=== PATIENT | female | born 1950 | race Caucasian/White ===

== ENCOUNTER → 2016-09-08 | Outpatient (CLI) | payer BC ==
[~2016-09-08] MED LIST: ATOR-22 PO; CALC-354 PO; CHOL100010 PO
--- NOTE | 2016-09-08 16:47 | MAMMOGRAPHY REPORT ---
BILATERAL DIGITAL SCREENING MAMMOGRAM WITH CAD: 09/08/2016 CLINICAL HISTORY: Routine screening. Patient has no complaints. TECHNIQUE: Bilateral CC and MLO views were obtained. Current study was also evaluated with a Comput er Aided Detection (CAD) system. COMPARISON: Comparison is made to exams dated: 02/25/2016 mammogram, 08/08/2014 mammogram, 3 mammogram, 08/27/2015 mammogram, 08/13/2015 mammogram, and 08/22/2014 mammogram - [facility]. BREAST COMPOSITION: The tissue of both breasts is heterogeneously dense, which may obscure small ma sses. FINDINGS: There are large benign rim calcifications scattered in the breasts, and also scattered rou nd and punctate benign-appearing microcalcifications. No suspicious mass, architectural distortion or cluster of new suspicious microcalcifications is seen. IMPRESSION: ACR BI-RADS CATEGORY 1: NEGATIVE There is no mammographic evidence of malignancy. A 1 year screening mammogram is recommended. The p atient will receive written notification of the results. Approximately 10% of breast cancers are not detected with mammography. A negative mammographic repor t should not delay biopsy if a clinically suggestive mass is present. Robyn Chen M.D. ay/:09/08/2016 15:16:45 Fur Sewer: Marcy LAMAS(Michael)(M), [facility] letter sent: Normal 1/2 BI-RADS Code: ACR BI-RADS Category 1: Negative
== END | disposition home or self-care (01) ==
LOC: C.MAMM 09:01
PROVIDERS: ATTEND Obstetrics & Gynecology
DX: Z12.31 Encounter for screening mammogram for malignant neoplasm of breast (principal)

== ENCOUNTER → 2016-09-29 | Outpatient (CLI) | payer BC ==
[2016-09-29 17:28] LABS: HEMATOCRIT 42.6 % (37-47); MEAN CELL VOLUME 93.2 fL (80-100); MEAN CORPUSCULAR HEMOGLOBIN 30.9 pg (25-34); MEAN CORPUSCULAR HGB CONC 33.1 g/dl (32-36); MEAN PLATELET VOLUME 13.6 fL (7.4-10.4); PLATELET COUNT 166 K/uL (130-400); RED BLOOD COUNT 4.57 M/uL (4.2-5.4); WHITE BLOOD COUNT 8.22 K/uL (4.8-10.8)
[2016-09-29 17:54] LABS: ALT/SGPT 17 U/L (12-78); AST/SGOT 17 U/L (15-37); BLOOD UREA NITROGEN 13 mg/dl (7-18); BUN/CREATININE RATIO 13.7 (10-20); CALCIUM 9.6 mg/dl (8.5-10.1); CARBON DIOXIDE 25 mmol/L (21-32); CHLORIDE 108 mmol/L (98-107); CREATININE 0.94 mg/dl (0.60-1.20); GLUCOSE 82 mg/dl (70-99); POTASSIUM 4.4 mmol/L (3.5-5.1); SODIUM 143 mmol/L (136-145)
[2016-09-29 18:05] LABS: ALB/GLOB RATIO 1.1 (0.9-2); ALKALINE PHOSPHATASE 80 U/L (45-117); CHOLESTEROL 164 mg/dl (0-200); CHOLESTEROL/HDL RATIO 2.3; HDL CHOLESTEROL 70 mg/dl; LDL CHOLESTEROL CALCULATED 77 mg/dl; TRIGLYCERIDES 84 mg/dl (0-150); VERY LOW DENSITY LIPOPROT CALC 17 mg/dl
[2016-09-30 07:23] LABS: ESTIMATED AVERAGE GLUCOSE 108 mg/dl; HA1C FLAG Normal (Normal)
--- NOTE | 2016-10-08 11:00 | CODING QUERY MEDICAL NECESSITY ---
SUPPORTING DIAGNOSIS NEEDED Dr. Boo, A supporting diagnosis is required for the test/procedure performed on this patient in order for us to be reimbursed by the patient's insurance. Please provide a supporting diagnosis for the following test/procedure listed below next to the test name along with your signature. *If there is no additional diagnosis for this patient that would support the following test/procedure please document that below next to the test/procedure. Test(s)/Procedure(s) that require a supporting diagnosis: * 13883 GLYCATED HEMOGLOBIN DIAGNOSIS: DATE OF SERVICE: 09/29/16 Provider Signature: Date: Thank you Guilherme Patterson [facility] Information Management Once completed, please kindly fax back to [phone] For questions please call [phone]
== END | disposition home or self-care (01) ==
LOC: C.LABBFT 12:46
PROVIDERS: ATTEND Internal Medicine
DX: Z00.00 Encounter for general adult medical examination without abnormal findings (principal); E78.5 Hyperlipidemia, unspecified

== ENCOUNTER → 2017-09-09 | Outpatient (CLI) | payer BC ==
--- NOTE | 2017-09-09 15:38 | MAMMOGRAPHY REPORT ---
BILATERAL DIGITAL SCREENING MAMMOGRAM TOMOSYNTHESIS WITH CAD: 09/09/2017 CLINICAL HISTORY: Routine screening. Patient has no complaints. TECHNIQUE: Breast tomosynthesis in addition to standard 2D mammography was performed. Current study was also evaluated with a Computer Aided Detection (CAD) system. COMPARISON: Comparison is made to exams dated: 09/08/2016 mammogram, 02/25/2016 mammogram, 08/13/2015 mammogram, 08/08/2014 mammogram, 08/05/2013 mammogram, and 08/04/2012 mammogram - [facility]. BREAST COMPOSITION: The tissue of both breasts is heterogeneously dense, which may obscure small mas ses. FINDINGS: There is a small cluster of calcifications within the right upper outer quadrant, for which spot magnification views are recommended for further evaluation. The remainder of both breasts are stable compared to prior exams, without suspicious masses, calcific ations, or areas of architectural distortion noted. Other scattered bilateral benign-appearing calci fications are not significantly changed. A 1.2 cm calcified benign oil cyst is again noted within th e right upper outer quadrant. IMPRESSION: ACR BI-RADS CATEGORY 0: INCOMPLETE EVALUATION: NEED ADDITIONAL IMAGING EVALUATION Right upper outer quadrant calcifications, for which additional imaging evaluation is recommended. T he patient will be called to schedule an appointment. Approximately 10% of breast cancers are not detected with mammography. A negative mammographic report should not delay biopsy if a clinically suggestive mass is present. Spring Schwarz M.D. ah/:09/09/2017 10:03:13 Information Technology Manager: Marcy LAMAS(R)(M), [facility] letter sent: Addl Imaging 0 BI-RADS Code: ACR BI-RADS Category 0: Incomplete Evaluation: Need Additional Imaging Evaluation
== END | disposition home or self-care (01) ==
LOC: C.MAMM 09:25
PROVIDERS: ATTEND Obstetrics & Gynecology
DX: Z12.31 Encounter for screening mammogram for malignant neoplasm of breast (principal); R92.1 Mammographic calcification found on diagnostic imaging of breast

== ENCOUNTER → 2017-09-18 | Outpatient (CLI) | payer BC ==
--- NOTE | 2017-09-21 07:41 | MAMMOGRAPHY REPORT ---
UNILATERAL RIGHT DIGITAL DIAGNOSTIC MAMMOGRAM: 09/18/2017 CLINICAL HISTORY: Callback from screening mammogram for right breast calcifications. TECHNIQUE: Spot magnification right cc and ML views were obtained. COMPARISON: Comparison is made to exams dated: 09/09/2017 mammogram, 09/08/2016 mammogram, 02/25/2016 m ammogram, 08/27/2015 mammogram, 08/13/2015 mammogram, and 08/22/2014 mammogram - [facility]. BREAST COMPOSITION: The tissue of the right breast is heterogeneously dense, which may obscure small masses. FINDINGS: There is a new small 7 mm cluster of heterogeneous calcifications in the right upper outer quadrant middle depth. Given that the calcifications are new and given the heterogeneous morphology, they are indeterminate and stereotactic biopsy is recommended for further evaluation. Other benign rim calcifications are seen scattered within the right breast. IMPRESSION: ACR BI-RADS CATEGORY 4: SUSPICIOUS New 7 mm cluster of calcifications within the right upper outer quadrant. The calcifications are ind eterminate and stereotactic biopsy is recommended for further evaluation. A phone call was made to the physician's office to confirm faxed results were received. The patient has been verbally notified of the results. She tentatively scheduled the biopsy before leaving the [facility]. Approximately 10% of breast cancers are not detected with mammography. A negative mammographic report should not delay biopsy if a clinically suggestive mass is present. Spring Schwarz M.D. /:09/18/2017 09:32:43 Screener Perfumer: Annie LAMAS(Michael)(Jama), [facility] letter sent: Abnormal 4/5 BI-RADS Code: ACR BI-RADS Category 4: Suspicious
== END | disposition home or self-care (01) ==
LOC: C.MAMM 08:56
PROVIDERS: ATTEND Obstetrics & Gynecology
DX: R92.0 Mammographic microcalcification found on diagnostic imaging of breast (principal)

== ENCOUNTER → 2017-09-23 | Outpatient (CLI) | payer BC ==
--- NOTE | 2017-09-23 11:26 | Discharge Instructions ---
Discharge Instructions Procedure Procedure Date: Sep 23, 2017. Reason for visit: Right Calcs. Discharge Discharge Date: Sep 23, 2017. Discharge Diagnosis: post right breast stereotactic guided biopsy Instructions Activity Recommendations: Additional Limitations (see below) Return to School/Work: no limitations Recommended Home Diet: No Limitations Provider Instructions: ACTIVITY RECOMMENDATIONS: * No lifting, pushing, pulling or exercising the affected side for three days. RETURN TO SCHOOL/WORK: * You may return to work/school after the procedure, but do not perform any strenuous activities for 24 to 48 hours. MEDICATIONS: * Tylenol (two 325 mg) every four to six hours if needed for mild pain (if not allergic to Tylenol). DIET: * Resume previous diet. SPECIAL CARE INSTRUCTIONS: * Keep biopsy site dry for 24 hours. May shower after 24 hours, but do not soak (bathe) incision. * May remove Tegaderm (plastic patch) tomorrow AFTER showering. * Leave the steri-strips on for one week. Allow the steri-strips to fall off by themselves. If not off after one week, you may remove them. You may place a Bandaid crosswise over the strips, if desired. * Apply ice 10 minutes on and 10 minutes off as needed. * Wear a bra at bedtime to sleep more comfortably for 2-3 days. * Your referring physician should have the results after approximately 5 to 7 business days. * Call for unusual bleeding, fever, drainage, etc or if you have any questions call [phone] during normal business hours or after hours call Dr Chen, . FOLLOW UP VISIT: Follow-up with Referring Physician as scheduled. Allergies Coded Allergies: Rofecoxib (Unverified Allergy, Unknown, RASH, 04/17/16) [facility] Recommendations: Call your doctor if: * Temperature above 101 degrees * Pain not relieved by pain medicine ordered * There is increased drainage or redness from any incision * You have any unanswered questions or concerns. Your Doctors Instructions noted above were prepared by provider Robyn Chen. Patient Signature Section: Patient Instructions Signature Page Madeleine Rae Patient (or Guardian) Signature/Date: I have read and understand the instructions given to me by my caregivers. Caregiver/RN/Doctor Signature/Date: The above-named patient and/or guardian has received patient instructions on this date. + Original Patient Signature Page (only) stays with chart. Please make copy for patient.
--- NOTE | 2017-09-23 14:03 | MAMMOGRAPHY REPORT ---
THIS REPORT HAS BEEN AMENDED. STEREOTACTIC GUIDED BIOPSY RIGHT BREAST: 09/23/2017 CLINICAL HISTORY: Indeterminate 7 mm grouping of microcalcifications in the upper outer middle to pos terior right breast. Patient presented for stereotactic guided biopsy. COMPARISON: Comparison is made to exams dated: 09/18/2017 mammogram, 09/09/2017 mammogram, 09/08/2016 ma mmogram, 02/25/2016 mammogram, 08/27/2015 mammogram, and 08/13/2015 mammogram - [facility]. PATIENT CONSENT: After explaining the risks, benefits and alternatives of the procedure to the patien t, informed consent was obtained both verbally and in writing. Specific risks include: Bleeding, inf ection, puncture of adjacent structure, pain, nontarget biopsy, sampling error, metal allergy and med ication reaction. PROCEDURE DESCRIPTION: A time-out was performed and the right breast was confirmed as the site of bio psy. The patient was placed prone on the stereotactic biopsy table and the breast was placed in later almedial compression. A tomosynthesis methods and procedures analyst view was obtained that demonstrates the clustered microc alcifications. Targeting was performed utilizing computer coordinates and based on the location of t he calcifications, the biopsy arm was switched to inferior approach. The skin was prepped with Betad ine. 1% Lidocaine with and without epinipherine was administered as local anesthesia. A small skin in cision was made. Through the incision, the needle was inserted to the depth determined by the comput er. 6 samples were obtained using a [employer] Eviva 9-gauge vacuum-assisted biopsy device. The specimen r adiograph demonstrated only 1-2 microcalcifications therefore 5 additional core biopsy samples were o btained. The second round of samples demonstrates nearly the entire cluster of microcalcifications t herefore a metallic marker was placed at the biopsy site. There was no immediate complication. Hemos tasis was achieved after several minutes of manual compression. The samples were sent to pathology i n two appropriately labeled containers, "with calcifications" and "without calcifications". All of th e samples were obtained from the same single biopsy site. Postprocedure CC and ML views of the right breast were obtained. There is a new dumbbell-shaped [facility] biopsy marker clip and no significant hematoma in the upper outer middle to posterior right nona ast, at the site of the biopsied clustered microcalcifications in question. IMPRESSION: STEREOTACTIC GUIDED BIOPSY Status post right breast stereotactic guided biopsy of a small 7 mm grouping of microcalcifications i n the upper outer quadrant of the right breast, with biopsy marker placed at the site. The patient will receive notification of the biopsy results from her referring physician. Robyn Chen M.D. ay/:09/23/2017 11:44:07 Attending Technologist: Marcy Denney RT(R)(M), [facility] Machine Sprayer: Lindsey Mcfadden RT(R)(M), [facility] AMENDMENT: 09/24/2017 Robyn Chen M.D. 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 The pathology results are concordant with the imaging appearance. Given the findings of both invasiv e ductal carcinoma and DCIS as well as heterogeneously dense breasts, a breast MRI is recommended to assess extent of disease, prior to definitive treatment.
--- NOTE | 2017-09-23 14:03 | MAMMOGRAPHY REPORT ---
UNILATERAL RIGHT DIGITAL DIAGNOSTIC MAMMOGRAM: 09/23/2017 CLINICAL HISTORY: Status post stereotactic guided biopsy of a 7 mm grouping of microcalcifications in the right upper outer quadrant. Please refer to the report from right breast stereotactic guided biopsy performed at the same time fo r full detail. IMPRESSION: POST PROCEDURE IMAGING FOR MARKER PLACEMENT Please refer to the report from right breast stereotactic guided biopsy performed at the same time fo r full detail. Approximately 10% of breast cancers are not detected with mammography. A negative mammographic report should not delay biopsy if a clinically suggestive mass is present. Robyn Chen M.D. ay/:09/23/2017 11:33:31 Attending Technologist: Marcy Denney RT(R)(M), [facility] Glove Factory Sewer: Lindsey Mcfadden RT(R)(M), [facility] BI-RADS Code: Post Procedure Imaging For Marker Placement
== END | disposition home or self-care (01) ==
LOC: C.MAMM 10:33
PROVIDERS: ATTEND Obstetrics & Gynecology
DX: C50.411 Malignant neoplasm of upper-outer quadrant of right female breast (principal); R92.0 Mammographic microcalcification found on diagnostic imaging of breast

== ENCOUNTER → 2017-10-02 | Outpatient (CLI) | payer BC ==
[2017-10-02 12:48] LABS: BASO % 0.2 %; BASO ABS # 0.02 K/uL (0-0.2); EOS % 1.5 %; EOS ABS # 0.15 K/uL (0-0.5); HEMATOCRIT 42.4 % (37-47); HEMOGLOBIN 13.9 g/dL (12.0-16.0); IG# 0.02 K/uL (0.00-0.02); LYMPH % 16.3 %; LYMPH ABS # 1.62 K/uL (1.2-3.4); MEAN CELL VOLUME 94.2 fL (80-100); MEAN CORPUSCULAR HEMOGLOBIN 30.9 pg (25-34); MEAN CORPUSCULAR HGB CONC 32.8 g/dl (32-36); MEAN PLATELET VOLUME 13.5 fL (7.4-10.4); MONO % 7.5 %; MONO ABS # 0.74 K/uL (0.11-0.59); NEUT % 74.3 %; NEUT ABS # 7.38 K/uL (1.4-6.5); PLATELET COUNT 159 K/uL (130-400); RED CELL DISTRIBUTION WIDTH CV 14.5 % (11.5-14.5); RED CELL DISTRIBUTION WIDTH SD 49.5 fL (36.4-46.3); WHITE BLOOD COUNT 9.93 K/uL (4.8-10.8)
[2017-10-02 13:12] LABS: ALT/SGPT 15 U/L (12-78); AST/SGOT 14 U/L (15-37); BLOOD UREA NITROGEN 15 mg/dl (7-18); CARBON DIOXIDE 26 mmol/L (21-32); CREATININE 0.98 mg/dl (0.60-1.20); GLUCOSE 93 mg/dl (70-99); POTASSIUM 4.2 mmol/L (3.5-5.1); SODIUM 141 mmol/L (136-145)
[2017-10-02 13:22] LABS: CHOLESTEROL 148 mg/dl (0-200); LDL CHOLESTEROL CALCULATED 78 mg/dl
== END | disposition home or self-care (01) ==
LOC: C.LABBFT 10:41
PROVIDERS: ATTEND Internal Medicine
DX: Z01.818 Encounter for other preprocedural examination (principal); C50.911 Malignant neoplasm of unspecified site of right female breast; E78.5 Hyperlipidemia, unspecified

== ENCOUNTER → 2017-10-05 | Outpatient (CLI) | payer BC ==
--- NOTE | 2017-10-06 15:25 | MAMMOGRAPHY REPORT ---
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 COMPARISON: Comparison is made to exams dated: 09/23/2017 stereotactic biopsy, 09/18/2017 mammogram, 08/18 mammogram, 09/08/2016 mammogram, 02/25/2016 mammogram, and 08/27/2015 mammogram - [facility]. TECHNIQUE: Using a 1.5 Carole magnet and dedicated breast coil, multisequence axial images were obtain ed through the breasts. After uneventful IV administration of 6 mL of Gadavist, dynamic multiphase c ontrast-enhanced axial images, and sagittal postcontrast were obtained. Temporal subtraction axial i mages and 3-D MIP images are provided. Everything was then reviewed on a 3-D workstation, [email or web address]. FINDINGS: Right breast: There is minimal background parenchymal enhancement. There is susceptibility artifact from a metallic biopsy marker clip in the upper outer approximate 9:0010:00 middle one third of the right breast, at the site of recent stereotactic guided biopsy. Adjacent to the biopsy marker is a r ound circumscribed 10 mm mass, consistent with the large coarse benign calcification seen mammographi etta. There is clumped and linear non-mass enhancement near the biopsy site from approximately 2 mm inferior to the biopsy marker clip extending 3 cm anteriorly towards the nipple, in the approximate 9:0010:00 right breast (axial page 74/116, sagittal page 97/120), that is concerning for additional DCIS. At its widest point in transverse dimension, it measures 8 mm. This linear and clumped non-ma ss enhancement demonstrates T2 isointensity and persistent kinetics. Re-review of prior right mammog marta including spot magnification views fail to demonstrate any additional microcalcifications in the location of the clumped enhancement, nevertheless targeted second look ultrasound is recommended. I f unyielding, MRI guided biopsy may be needed to assess AP extent of disease. No other suspicious en hancing masses, definite areas of non-mass enhancement or architectural distortion is identified in t he right breast. There is no nipple retraction. The retromammary fat is intact. No suspicious righ t axillary lymphadenopathy. Left breast: There is minimal background parenchymal enhancement. There are 2 prominent foci of enha ncement in the approximate 11:00 middle and anterior one third of the left breast. The focus of enha ncement in the middle one third of the breast demonstrates predominantly persistent kinetics with a s charlie internal focus of plateau kinetics, no significant T2 hyperintensity, and measures 3.6 x 5.3 x 4.5 mm (axial page 71/116, sagittal page 35/120). The second, more anterior focus measures 2.5 x 3.0 x 2.7 mm, also no significant T2 hyperintensity, associated persistent kinetics and identified on ax ial page 71/116 and sagittal paged 31/120. These foci of enhancement are indeterminate and targeted second look ultrasound with possible ultrasound-guided core biopsy is recommended. If second look ul trasound is unyielding, MRI guided biopsy may be needed. No other suspicious enhancing masses, non-m ass enhancement or suspicious kinetics is seen in the left breast. No focal skin thickening or nippl e retraction. The retromammary fat is intact. No suspicious left axillary lymphadenopathy. IMPRESSION: ACR BI-RADS CATEGORY 4: SUSPICIOUS 1. Susceptibility artifact from the biopsy marker clip is seen in the 9:00 to 10:00 middle one third of the right breast, denoting the site of recent biopsy proven IDC and DCIS. Linear clumped non-mas s enhancement, 8 mm in maximum transverse dimension, extends 3 cm anteriorly towards the nipple from inferior aspect of the biopsy marker clip, concerning for additional DCIS. Targeted second look ultra sound with possible ultrasound-guided core biopsy is recommended to assess extent of disease, given t hat no additional calcifications are seen mammographically for targeting purposes. 2. Two prominent foci of enhancement are identified in the left breast at approximately 1:00 middle and anterior one third of the breast for which targeted second look ultrasound is recommended. If se cond look ultrasound is unyielding, MRI guided biopsy may be needed. 3. No suspicious axillary adenopathy bilaterally. The patient will be called to schedule an appointment. Robyn Chen M.D. ay/:10/05/2017 21:07:36 Hole Filler: surface room shop optician, [facility] letter sent: Abnormal 4/5 BI-RADS Code: ACR BI-RADS Category 4: Suspicious
== END | disposition home or self-care (01) ==
LOC: C.MRI 09:59
PROVIDERS: ATTEND Surgery
DX: C50.911 Malignant neoplasm of unspecified site of right female breast (principal)

== ENCOUNTER → 2017-10-14 | Outpatient (CLI) | payer BC ==
--- NOTE | 2017-10-14 12:13 | Discharge Instructions ---
Discharge Instructions Procedure Procedure Date: Oct 14, 2017. Reason for visit: Left Foci Of Enhancement. Discharge Discharge Date: Oct 14, 2017. Discharge Diagnosis: post left breast ultrasound guided core biopsy Instructions Activity Recommendations: Additional Limitations (see below) Return to School/Work: no limitations Recommended Home Diet: No Limitations Provider Instructions: ACTIVITY RECOMMENDATIONS: * No lifting, pushing, pulling or exercising the affected side for three days. RETURN TO SCHOOL/WORK: * You may return to work/school after the procedure, but do not perform any strenuous activities for 24 to 48 hours. MEDICATIONS: * Tylenol (two 325 mg) every four to six hours if needed for mild pain (if not allergic to Tylenol). DIET: * Resume previous diet. SPECIAL CARE INSTRUCTIONS: * Keep biopsy site dry for 24 hours. May shower after 24 hours, but do not soak (bathe) incision. * May remove Tegaderm (plastic patch) tomorrow AFTER showering. * Leave the steri-strips on for one week. Allow the steri-strips to fall off by themselves. If not off after one week, you may remove them. You may place a Bandaid crosswise over the strips, if desired. * Apply ice 10 minutes on and 10 minutes off as needed. * Wear a bra at bedtime to sleep more comfortably for 2-3 days. * Your referring physician should have the results after approximately 5 to 7 business days. * Call for unusual bleeding, fever, drainage, etc or if you have any questions call [phone] during normal business hours or after hours call Dr Chen, . FOLLOW UP VISIT: Follow-up with Referring Physician as scheduled. Allergies Coded Allergies: Rofecoxib (Unverified Allergy, Unknown, RASH, 04/17/16) [facility] Recommendations: Call your doctor if: * Temperature above 101 degrees * Pain not relieved by pain medicine ordered * There is increased drainage or redness from any incision * You have any unanswered questions or concerns. Your Doctors Instructions noted above were prepared by provider Robyn Chen. Patient Signature Section: Patient Instructions Signature Page Madeleine Rae Patient (or Guardian) Signature/Date: I have read and understand the instructions given to me by my caregivers. Caregiver/RN/Doctor Signature/Date: The above-named patient and/or guardian has received patient instructions on this date. + Original Patient Signature Page (only) stays with chart. Please make copy for patient.
--- NOTE | 2017-10-14 15:53 | MAMMOGRAPHY REPORT ---
ULTRASOUND GUIDED BIOPSY LEFT BREAST: 10/14/2017 CLINICAL HISTORY: Small round circumscribed hypoechoic 3 mm mass in the 2:00 periareolar left breast, which may possibly correlate with a small enhancing focus seen on recent breast MRI. Patient presen ts for ultrasound guided core biopsy. COMPARISON: Comparison is made to exams dated: 10/14/2017 ultrasound, 09/09/2017 mammogram, 09/08/2016 mammogram, and 08/13/2015 mammogram - [facility]. PATIENT CONSENT: The procedure, risks and benefits were discussed with the patient and informed conse nt was obtained both verbally and in writing. Specific risks to this procedure include: bleeding, in fection, puncture of adjacent structure, nontarget biopsy, sampling error, pain, metal allergy and me dication reaction. PROCEDURE DESCRIPTION: A time out was performed and the left breast was agreed as the site of biopsy. The skin was prepped and draped in the usual sterile fashion. The small round isoechoic 3 mm mass in the 2:00 periareolar left breast was chosen as the target for biopsy. Subcutaneous and intraparenchy mal 1% buffered lidocaine, with and without epinephrine, was administered as local anesthesia. A skin incision was made. Through the incision, 2 samples were taken with a 14 gauge Achieve biopsy device , and after the second biopsy pass the lesion was no longer identified therefore a rubbon shaped meta llic marker was placed at the biopsy site. Hemostasis was achieved after manual compression. The lori ent tolerated the procedure well and there was no immediate complication. The samples were sent to t pathology department in an appropriately labeled container. Post procedure left CC and ML tomosynthesis images were obtained. A new ribbon-shaped biopsy marker clip is identified in the 2:00 anterior left breast, at the site of the biopsied round hypoechoic mas s identified on ultrasound. No significant postbiopsy hematoma. IMPRESSION: ULTRASOUND GUIDED BIOPSY Status post ultrasound guided core biopsy of a small 3 mm round mass in the 2:00 periareolar left nona ast which may possibly correlate with an enhancing focus seen on recent breast MRI. The non-mass enhancement in the lateral right breast and 5 mm linear enhancement in the superior midd le one third of the left breast were not identified on second look ultrasound and therefore bilateral breast MRI guided biopsy is needed. At the time of MRI guided biopsy, can assess mammographicsonog raphic correlation of this biopsy performed today. If there is no mammographicsonographic correlati on then 3 MRI biopsies will be performed. The patient will receive notification of the biopsy results from her referring physician. Robyn Chen M.D. ay/:10/14/2017 12:38:56 Machine Stamper: Marcy ORTIZ)(Jama), [facility]
--- NOTE | 2017-10-14 15:57 | MAMMOGRAPHY REPORT ---
UNILATERAL LEFT DIGITAL DIAGNOSTIC MAMMOGRAM TOMOSYNTHESIS: 10/14/2017 CLINICAL HISTORY: Status post ultrasound guided core biopsy of a small round 3 mm mass in the 2:00 pe riareolar left breast which may correlate with an enhancing focus seen on recent MRI. Recently diagn osed right breast cancer. Please refer to report from left breast ultrasound guided core biopsy performed at the same time for full detail. IMPRESSION: POST PROCEDURE IMAGING FOR MARKER PLACEMENT Please refer to report from left breast ultrasound guided core biopsy performed at the same time for full detail. Approximately 10% of breast cancers are not detected with mammography. A negative mammographic report should not delay biopsy if a clinically suggestive mass is present. Robyn Chen M.D. ay/:10/14/2017 12:12:08 Ordained Minister: Marcy ORTIZ)(M), [facility] BI-RADS Code: Post Procedure Imaging For Marker Placement
--- NOTE | 2017-10-14 15:57 | MAMMOGRAPHY REPORT ---
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 COMPARISON: Comparison is made to exams dated: 10/05/2017 breast MRI, 09/23/2017 stereotactic biopsy, mammogram, 09/18/2017 mammogram, 09/09/2017 mammogram, and 09/08/2016 mammogram - [facility]. FINDINGS: Targeted ultrasound was performed in both breasts, with particular attention to the lateral right breast and retroareolar right breast, as well as the 12:00, 1:00, 2:00, retroareolar and 11:00 axes of the left breast. In the 2:00 periareolar left breast, there is a small round hypoechoic froylan id versus cystic mass with internal punctate reflectors which could represent calcifications. This i s abutting a tubular anechoic structure but it is unclear if it represents an intraductal mass. It i s also not clear if this definitively correlates with the anterior enhancing focus seen on recent MRI , although the size measurements are somewhat similar. On ultrasound this lesion measures 3.2 x 3.0 x 3.6 mm and the MRI lesion measured 2.5 x 3.0 x 2.7 mm. Nevertheless, ultrasound-guided core biopsy is recommended for definitive characterization. No other discrete solid or cystic mass is identifie d in the left breast on targeted ultrasound. No definite sonographic correlate for the linear area o f enhancement in the middle one third of the left breast. Targeted ultrasound was performed in the right breast. In the 10:00 axis, 5 cm from the nipple, ther e is a small biopsy cavity and echogenic biopsy marker clip identified and this area measures 6.8 x 5 .9 mm. This is adjacent to a large shadowing coarse calcification limiting evaluation of the breast tissue deep to the calcification. No other definite solid or cystic mass or targeted bone abnormalit y is seen in the 9:00 and 10:00 right breast to correspond with the linear clumped non-mass enhanceme nt seen on MRI. This finding remains indeterminate and MRI guided biopsy is recommended. IMPRESSION: ACR BI-RADS CATEGORY 4: SUSPICIOUS - FOLLOW-UP RECOMMENDED 1. Ultrasound guided core biopsy is recommend for an indeterminate 3 mm round mass in the 2:00 peria reolar left breast, which may possibly correlate with the smaller anterior 3 mm focus of enhancement in the 12:00 to 1:00 left breast seen on MRI. 2. No sonographic correlate identified for the slightly larger 5 mm linear area of enhancement in th e middle one third of the left breast or the clumped non-mass enhancement extending anterior from the biopsy site in the 9:00 to 10:00 right breast. Therefore MRI guided biopsy is still needed in both breasts. Can assess MRIultrasound correlation at the time of MRI guided biopsy and potentially targ eted 3 lesions during MRI guided biopsy. These results and recommendations were discussed with the patient at the time of the exam. The ultra sound guided core biopsy of the left breast was performed during the same appointment and the patient was scheduled for bilateral MRI guided biopsy prior to leaving the department. Robyn Chen M.D. ay/:10/14/2017 12:19:50 Intermediate Frame Tender: Dr. Robyn Chen, [facility] letter sent: Abnormal 4/5 BI-RADS Code: ACR BI-RADS Category 4: Suspicious
== END | disposition home or self-care (01) ==
LOC: C.MAMM 10:46
PROVIDERS: ATTEND Surgery
DX: N60.02 Solitary cyst of left breast (principal); N61.0 Mastitis without abscess

== ENCOUNTER → 2017-10-22 | Outpatient (CLI) | payer BC ==
[~2017-10-22] MED LIST changes: +GADAVIST IV PRN; +LIDO/EPINEPHRINE/SOD BICARB 20 ML VIAL INFIL ONE; +XYLOCAINE 1%/SOD BICARB 20 ML VIAL INFIL ONE
--- NOTE | 2017-10-22 10:02 | Discharge Instructions ---
Discharge Instructions Procedure Procedure Date: Oct 22, 2017. Reason for visit: Right Non-Enhancement/Left Foci Non-Enhancement. Discharge Discharge Date: Oct 22, 2017. Discharge Diagnosis: post right and left breast MRI guided biopsies Instructions Activity Recommendations: Additional Limitations (see below) Return to School/Work: no limitations Recommended Home Diet: No Limitations Provider Instructions: ACTIVITY RECOMMENDATIONS: * No lifting, pushing, pulling or exercising the affected side for three days. RETURN TO SCHOOL/WORK: * You may return to work/school after the procedure, but do not perform any strenuous activities for 24 to 48 hours. MEDICATIONS: * Tylenol (two 325 mg) every four to six hours if needed for mild pain (if not allergic to Tylenol). DIET: * Resume previous diet. SPECIAL CARE INSTRUCTIONS: * Keep biopsy site dry for 24 hours. May shower after 24 hours, but do not soak (bathe) incision. * May remove Tegaderm (plastic patch) tomorrow AFTER showering. * Leave the steri-strips on for one week. Allow the steri-strips to fall off by themselves. If not off after one week, you may remove them. You may place a Bandaid crosswise over the strips, if desired. * Apply ice 10 minutes on and 10 minutes off as needed. * Wear a bra at bedtime to sleep more comfortably for 2-3 days. * Your referring physician should have the results after approximately 5 to 7 business days. * Call for unusual bleeding, fever, drainage, etc or if you have any questions call [phone] during normal business hours or after hours call Dr Chen, . FOLLOW UP VISIT: Follow-up with Referring Physician as scheduled. Allergies Coded Allergies: Rofecoxib (Unverified Allergy, Unknown, RASH, 04/17/16) Divine Espinal Recommendations: Call your doctor if: * Temperature above 101 degrees * Pain not relieved by pain medicine ordered * There is increased drainage or redness from any incision * You have any unanswered questions or concerns. Your Doctors Instructions noted above were prepared by provider Robyn Chen. Patient Signature Section: Patient Instructions Signature Page Madeleinedoris Rae Patient (or Guardian) Signature/Date: I have read and understand the instructions given to me by my caregivers. Caregiver/RN/Doctor Signature/Date: The above-named patient and/or guardian has received patient instructions on this date. + Original Patient Signature Page (only) stays with chart. Please make copy for patient.
--- NOTE | 2017-10-22 15:07 | MAMMOGRAPHY REPORT ---
MULTIPLE MRI BIOPSIES BOTH BREASTS: 10/22/2017 CLINICAL HISTORY: 67-year-old woman with recently diagnosed right breast IDC presents for MRI guided biopsy of non-mass enhancement in the 9:00 right breast and 2 foci of enhancement in the 11:00 to 12: 00 anterior and middle one third of the left breast. COMPARISON: Comparison is made to exams dated: 10/14/2017 mammogram, 10/14/2017 ultrasound biopsy, 09/18 ultrasound, 10/05/2017 breast MRI, 09/23/2017 mammogram, and 09/23/2017 stereotactic biopsy - [facility]. PATIENT CONSENT: After explaining the risks, benefits and alternatives of the procedure to the patien t, informed consent was obtained both verbally and in writing. Specific risks include: Bleeding, inf ection, puncture of adjacent structure, medication reaction, breast or lung injury, sampling error. PROCEDURE DESCRIPTION: A timeout was performed prior to starting the procedure and both breasts were agreed as sites for MRI guided biopsy. The patient was placed prone on a 1.5 Carole MRI scanner. The lateral aspect of each breast was clean sed with ChloraPrep. The patient was positioned with both breasts in a dedicated breast coil and MRI guidance grid device. After localizing sequences were obtained, pre-and postcontrast axial sequences were obtained, using 6 cc Gadavist without immediate reaction. The postcontrast images confirm the persistence of the non-m ass enhancement in a linear distribution in the 9:00 right breast, and the most anterior aspect of th e non-mass enhancement was targeted with AEGIS software. In the left breast, 2 enhancing foci are ag ain identified in the 11:00 to 12:00 anterior and middle one third of the breast confirming that the ultrasound guided biopsy did not correlate with 1 of these foci. Therefore, the 2 lesions in the lef t breast were also targeted in the left breast using Aegis software. The skin of both the right and left breast was re-prepped with Betadine through the grid, and after l ocal anesthesia was achieved, an introducer sheath and localizing band log mill and carriage operator were placed into the right breast via a lateral approach, targeting the linear non-mass enhancement. 2 additional localizing o bturators were placed into the left breast approximate 11:00 to 12:00 axis in the anterior and middle one third of the breast. These 2 sites were labeled "Left breast A and B". The location of all 3 o bturator sheaths was confirmed with additional axial images. After confirming adequate placement of the obturator sheaths, samples were first obtained in the right breast. A total of 10 core biopsy sa mples were obtained in the 9:00 right breast. Then additional axial images were obtained with fine a djustments of the site labeled "B" in the left breast. Then 8 samples were obtained from both sites A and B in the left breast. Post biopsy images demonstrate adequate sampling of each lesion, therefore, through the introducer sh eath, metallic biopsy markers were placed. In particular, a "T" or "Kvf-Fko-umkuvy" biopsy marker cl ip was placed in the 9:00 anterior right breast. In the left breast at the biopsy site "Left A", in the anterior 11 to 12:00 breast, a dumbbell-shaped biopsy marker clip was placed. In the 11:00 to 12 :00 middle one third of the left breast at the site labeled "Left B", a "figure of 8-shaped" clip was placed. The patient tolerated the procedure well and there was no immediate complication. Hemostasis was ach ieved after several minutes of manual compression. The samples were sent to pathology in appropriate ly labeled containers. Postprocedure CC and ML tomosynthesis views of each breast were obtained. There is a new T-shaped bi opsy marker clip at the 9:00 anterior right breast. No significant hematoma identified. The biopsy marker clips in the right breast are located 3.5 cm distal to each other. The posterior dumbbell-sha ped clip represents the patient's biopsy-proven carcinoma. In the left breast, there is a 4 x 2 cm hematoma at the anterior biopsy site denoted by the dumbbell- shaped biopsy marker clip (left breast "A"). A ribbon-shaped clip is seen at the site of benign ultr asound-guided core biopsy, and a third figure of 8-shaped clip in the posterior 12:00 left breast is also seen, representing site "B" or the focus of enhancement more distal to the nipple. Pathology is pending. Given the left breast hematoma, the patient's left breast was wrapped in a pressure dressing to apply additional pressure with ice as she left the department. IMPRESSION: MRI BIOPSY Status post bilateral breast MRI guided biopsy, with 2 sites sampled with MRI guidance in the left br east, and 1 site sampled in the right breast, detailed above. The patient will receive notification of the biopsy results from her referring physician. Robyn Chen M.D. ay/:10/22/2017 11:07:51 Dressing Machine Operator: rn discharge, [facility]
== END | disposition home or self-care (01) ==
LOC: C.MRI 07:39
PROVIDERS: ATTEND Surgery
DX: R92.8 Other abnormal and inconclusive findings on diagnostic imaging of breast (principal)

== ENCOUNTER → 2017-10-27 | Outpatient (CLI) | payer BC ==
[~2017-10-27] MED LIST changes: +CHOL100041 PO; -GADAVIST IV PRN; -LIDO/EPINEPHRINE/SOD BICARB 20 ML VIAL INFIL ONE; +NAPR1TAB9 PO; -XYLOCAINE 1%/SOD BICARB 20 ML VIAL INFIL ONE
--- NOTE | 2017-10-27 16:11 | ECHOCARDIOGRAM REPORT ---
*NOTICE TO RECEIVING CONSTITUTION PARTY AGENCY This information is strictly Confidential and protected under [place] law. [place] law prohibits you from making any further disclosure of this information unless further disclosure is expressly permitted by the written consent of the person to whom it pertains or is authorized by law. A general authorization for the release of medical or other information is not sufficient for this purpose. Hospital accepts no responsibility if the information is made available to any other person, INCLUDING THE PATIENT. Interpretation Summary * Name: LUCIAN MCNEAL Study Date: 10/27/2017 12:53 PM BP: 126/58 mmHg * Patient Location: [facility] HR: 79 * : 1950 (M/d/yyyy) Gender: Female Height: 59 in * Age: 67 yrs Ethnicity: CA Weight: 133 lb * Ordering Physician: Osmany Cruz * Referring Physician: Osmany Cruz * Performed By: Patricia Braxton RDCS * * Reason For Study: Neoplasm * BSA: 1.6 m2 * -- Conclusions -- * There is borderline concentric left ventricular hypertrophy. * Left ventricular systolic function is normal. * Mild diastolic dysfunction * Right ventricular systolic pressure is normal. Procedure Details * A complete two-dimensional transthoracic echocardiogram was performed (2D, M-mode, Doppler and color flow Doppler). Left Ventricle * The left ventricle is normal in size. * There is borderline concentric left ventricular hypertrophy. * Ejection Fraction = 60-65%. * Left ventricular systolic function is normal. * Mild diastolic dysfunction * The left ventricular wall motion is normal. Right Ventricle * The right ventricle is normal in size and function. * The right ventricular systolic function is normal as assessed by tricuspid annular plane systolic excursion (TAPSE) (normal >1.5 cm). Atria * The left atrial size is normal. * Right atrial size is normal. Mitral Valve * The mitral valve is grossly normal. * There is trace mitral regurgitation. Tricuspid Valve * The tricuspid valve is not well visualized, but is grossly normal. * There is trace tricuspid regurgitation. * Right ventricular systolic pressure is normal. Aortic Valve * The aortic valve is normal in structure and function. * No hemodynamically significant valvular aortic stenosis. * There is no significant aortic regurgitation. Great Vessels * The aortic root is normal size. Pericardium/Pleural * There is no pericardial effusion. Great Vessels * Normal inferior vena cava diameter and respiratory variation suggests normal central venous pressure. MMode 2D Measurements and Calculations IVSd 1.2 cm IVSs 1.2 cm LVIDd 3.0 cm LVIDs 2.0 cm LVPWd 1.3 cm LVPWs 1.7 cm IVS/LVPW 0.94 FS 32.0 % EDV(Teich) 34.7 ml ESV(Teich) 13.3 ml EF(Teich) 61.7 % EDV(cubed) 26.7 ml ESV(cubed) 8.4 ml EF(cubed) 68.5 % % IVS thick 1.9 % % LVPW thick 31.5 % LV mass(C)d 113.8 grams LV mass(C)dI 73.4 grams/m\S\2 LV mass(C)s 93.1 grams LV mass(C)sI 60.1 grams/m\S\2 SV(Teich) 21.4 ml SI(Teich) 13.8 ml/m\S\2 SV(cubed) 18.3 ml SI(cubed) 11.8 ml/m\S\2 Ao root diam 3.0 cm Ao root area 6.9 cm\S\2 ACS 1.8 cm LA dimension 3.0 cm LA/Ao 1.0 LVAd ap4 18.1 cm\S\2 LVLd ap4 6.2 cm EDV(MOD-sp4) 46.0 ml EDV(sp4-el) 45.1 ml LVAs ap4 10.1 cm\S\2 LVLs ap4 5.6 cm ESV(MOD-sp4) 17.4 ml ESV(sp4-el) 15.4 ml EF(MOD-sp4) 62.2 % EF(sp4-el) 65.8 % LVAd ap2 15.8 cm\S\2 LVLd ap2 6.5 cm EDV(MOD-sp2) 34.6 ml EDV(sp2-el) 32.8 ml LVAs ap2 8.6 cm\S\2 LVLs ap2 5.5 cm ESV(MOD-sp2) 12.5 ml ESV(sp2-el) 11.4 ml EF(MOD-sp2) 63.8 % EF(sp2-el) 65.2 % LVLd %diff 4.9 % EDV(MOD-bp) 41.0 ml LVLs %diff -2.37 % ESV(MOD-bp) 14.5 ml EF(MOD-bp) 64.8 % SV(MOD-sp4) 28.6 ml SI(MOD-sp4) 18.5 ml/m\S\2 SV(MOD-sp2) 22.1 ml SI(MOD-sp2) 14.3 ml/m\S\2 SV(MOD-bp) 26.6 ml SI(MOD-bp) 17.1 ml/m\S\2 SV(sp4-el) 29.7 ml SI(sp4-el) 19.1 ml/m\S\2 SV(sp2-el) 21.4 ml SI(sp2-el) 13.8 ml/m\S\2 Doppler Measurements and Calculations MV E max georgette 104.6 cm/sec MV A max georgette 101.9 cm/sec MV E/A 1.0 MV dec time 0.21 sec Ao V2 max 145.5 cm/sec Ao max PG 8.5 mmHg Ao max PG (full) 4.0 mmHg LV V1 max PG 4.5 mmHg LV V1 max 105.7 cm/sec PA V2 max 93.5 cm/sec PA max PG 3.5 mmHg TR max georgette 230.7 cm/sec
== END | disposition home or self-care (01) ==
LOC: C.CPL 13:47
PROVIDERS: ATTEND Internal Medicine Hematology & Oncology
DX: C50.411 Malignant neoplasm of upper-outer quadrant of right female breast (principal)

== ENCOUNTER → 2017-10-27 | Outpatient (CLI) | payer BC ==
[2017-10-27 15:44] LABS: BASO % 0.4 %; BASO ABS # 0.03 K/uL (0-0.2); EOS ABS # 0.16 K/uL (0-0.5); HEMATOCRIT 40.5 % (37-47); HEMOGLOBIN 13.1 g/dL (12.0-16.0); IG# 0.03 K/uL (0.00-0.02); LYMPH % 25.9 %; LYMPH ABS # 2.06 K/uL (1.2-3.4); MEAN CELL VOLUME 93.3 fL (80-100); MEAN CORPUSCULAR HEMOGLOBIN 30.2 pg (25-34); MEAN CORPUSCULAR HGB CONC 32.3 g/dl (32-36); MEAN PLATELET VOLUME 13.4 fL (7.4-10.4); MONO ABS # 0.48 K/uL (0.11-0.59); NEUT % 65.3 %; PLATELET COUNT 182 K/uL (130-400); RED CELL DISTRIBUTION WIDTH CV 14.4 % (11.5-14.5); RED CELL DISTRIBUTION WIDTH SD 48.6 fL (36.4-46.3); WHITE BLOOD COUNT 7.96 K/uL (4.8-10.8)
[2017-10-27 16:22] LABS: ALBUMIN 3.9 gm/dl (3.4-5.0); ALT/SGPT 16 U/L (12-78); BLOOD UREA NITROGEN 14 mg/dl (7-18); CALCIUM 9.7 mg/dl (8.5-10.1); CARBON DIOXIDE 25 mmol/L (21-32); CREATININE 0.95 mg/dl (0.60-1.20); GLUCOSE 85 mg/dl (70-99); SODIUM 139 mmol/L (136-145)
[2017-10-27 16:25] LABS: ALKALINE PHOSPHATASE 78 U/L (45-117); AST/SGOT 14 U/L (15-37); TOTAL PROTEIN 7.4 gm/dl (6.4-8.2)
== END | disposition home or self-care (01) ==
LOC: C.LAB1850 14:44
PROVIDERS: ATTEND Internal Medicine Hematology & Oncology
DX: C50.411 Malignant neoplasm of upper-outer quadrant of right female breast (principal)

== ENCOUNTER 2017-11-09 07:46 | Day surgery (SDC) | payer BC, OTHER ==
[2017-10-28 08:55] VITALS: BMI 27.0
--- NOTE | 2017-10-28 09:25 | PAT Medication Instructions ---
Service Date Oct 28, 2017. Current Home Medication List Atorvastatin (Lipitor), 20 MG PO HS Calcium Carbonate-Cholecalcife (Caltrate 600+D), 1 TAB PO QPM Cholecalciferol (D 1000), 1 TAB PO QPM Naproxen (Aleve), 220-440 MG PO QD PRN for Pain Medication Instructions For Your Scheduled Surgery -Contact your surgeon for instructions for: Naproxen (Aleve), 220-440 MG PO QD PRN for Pain - Take the following medications as scheduled the night before surgery: Atorvastatin (Lipitor), 20 MG PO HS Calcium Carbonate-Cholecalcife (Caltrate 600+D), 1 TAB PO QPM Cholecalciferol (D 1000), 1 TAB PO QPM If you have any questions please call us at [phone] or [phone] or [phone]
--- NOTE | 2017-10-28 10:22 | DIAGNOSTIC IMAGING REPORT ---
CHEST 2 VIEWS ROUTINE CLINICAL HISTORY: PAT preoperative evaluation COMPARISON STUDY: No previous studies for comparison. FINDINGS: The bones soft tissues and hemidiaphragms are normal. The cardiomediastinal silhouette is normal. The lungs are clear. The pulmonary vasculature is normal. IMPRESSION: Negative chest. The above report was generated using voice recognition software. It may contain grammatical, syntax or spelling errors. Electronically signed by: Paolo Brady M.D. 10/28/2017 10:21 AM Dictated Date/Time: 10/28/2017 10:21 AM
[2017-11-09] VITALS (8 sets, daily range): BP systolic 100–141; BP diastolic 61–79; PULSE 61–81; TEMP 36.2–36.9; O2SAT 93–99; Ht 149.9 cm; Wt 60.7 kg
[~2017-11-09] VITALS: Ht 149.9 cm; Wt 60.7 kg
[~2017-11-09 07:46] MED LIST changes: +CEFAZOLIN 2000MG IV PUSH 15 ML IV SCH; -CHOL100010 PO; +LACTATED RINGER'S 1000ML 1,000 ML IV SCH
[2017-11-09] MEDS ORDERED: FENTANYL CITRATE INJ 50 MCG/1 ML 2 ML VIAL IV PRN (08:15)
[2017-11-09] MEDS ORDERED: ATROPINE SULFATE 0.1 MG/ML 5ML SYR IV PRN (08:15)
[2017-11-09] MEDS ORDERED: EpHEDrine SULFATE INJ 50 MG/ML AMP IV PRN (08:15)
--- NOTE | 2017-11-09 10:01 | DIAGNOSTIC IMAGING REPORT ---
LYMPH SENTINEL NODE ID CLINICAL HISTORY: RIGHT BREAST CA breast carcinoma TECHNIQUE: Right periareolar administration of a total of 0.545 mCi technetium 99m lymphocele COMPARISON STUDY: None FINDINGS: Successful right periareolar injections lymphocele IMPRESSION: Successful right periareolar injections lymphocele. No complications. The above report was generated using voice recognition software. It may contain grammatical, syntax or spelling errors. Electronically signed by: Paolo Brady M.D. 11/09/2017 10:00 AM Dictated Date/Time: 11/09/2017 9:59 AM
[2017-11-09] MEDS ORDERED: BUPIVACAINE 0.5 % 5 MG/1 ML MPF 30ML VIAL ONE (12:07)
[2017-11-09] MEDS ORDERED: METHYLENE BLUE 0.5% 10 ML VIAL ONE (12:07)
[2017-11-09] MEDS ORDERED: ISOSULFAN BLUE 10 MG/ML VIAL 5 ML ONE (12:13)
[2017-11-09] MEDS ORDERED: PROPOFOL IV EMULSION 10 MG/ML 20 ML VIAL IV ONE (12:14)
[2017-11-09] MEDS ORDERED: DEXAMETHASONE SOD INJ 4 MG/ML VIAL ONE (12:14)
[2017-11-09] MEDS ORDERED: ONDANSETRON INJ 2 MG/ML 2 ML VIAL ONE (12:14)
[2017-11-09] MEDS ORDERED: LIDOCAINE HCL 2% 2 ML VIAL (20MG/ML) ONE (12:14)
[2017-11-09] MEDS ORDERED: MIDAZOLAM HCL 1 MG/ML 2ML VIAL ONE (12:14)
[2017-11-09] MEDS ORDERED: FENTANYL CITRATE INJ 50 MCG/1 ML 2 ML VIAL ONE ×3 (12:14→13:58)
[2017-11-09] MEDS ORDERED: EpHEDrine SULFATE 50MG/5ML SYR ONE (13:17)
[2017-11-09] MEDS ORDERED: MoRPHine SULFATE 2 MG/ML CARP IV PRN (14:00)
[2017-11-09] MEDS ORDERED: MoRPHine SULFATE 4 MG/ML 1 ML CARP\\VIAL IV PRN (14:00)
[2017-11-09] MEDS ORDERED: PROMETHAZINE HCL INJ 25 MG in SODIUM CHLORIDE 0.9% 50ML 50 ML IV PRN (14:00)
[2017-11-09] MEDS ORDERED: ONDANSETRON INJ 2 MG/ML 2 ML VIAL IV PRN (14:00)
[2017-11-09] MEDS ORDERED: HYDROCODONE/ACETAMIN 5/325MG TAB PO PRN ×2 (14:00)
[2017-11-09] MEDS ORDERED: HYDR-5688 PO (14:04)
--- NOTE | 2017-11-09 14:04 | [facility] Operative Report ---
Operative Report Operative Date Nov 09, 2017. Pre-Operative Diagnosis Breast Cancer Right Post-Operative Diagnosis Breast Cancer Right Procedure(s) Performed Right Breast Lumpectomy with Needle Localization and [place] Lymph Node Biopsy Surgeon Lactation Coordinator Surgeon(s) MYKE Fonseca Estimated Blood Loss 10ml Findings SLN, Rt breast tissue Specimens Frozen Section #1. Right [place] Lymph Node, Left OR at [address]: A. Right Breast Tissue, Skin Anterior , Long Silk Lateral , Short Silk Medial, Blue Deep B. Right [place] Lymph Node C. Additional Right Superior Breast Tissue, Long silk Lateral, Short Silk Medial, Blue [place] D. Additional Right Inferior Breast Tissue, Long silk Lateral, Short Silk Medial, Blue [place] Drains None Anesthesia Type General Complication(s) none Disposition Recovery Room / PACU I attest to the content of the Intraoperative Record and any orders documented therein. Any exceptions are noted below.
--- NOTE | 2017-11-09 14:05 | [facility] Operative Report ---
Operative Report Operative Date Nov 09, 2017. Pre-Operative Diagnosis Breast Cancer Right Post-Operative Diagnosis Breast Cancer Right Procedure(s) Performed Right Breast Lumpectomy with Needle Localization and [place] Lymph Node Biopsy Surgeon Pouncer Surgeon(s) MYKE Fonseca Estimated Blood Loss 10ml Specimens Frozen Section #1. Right [place] Lymph Node, Left OR at [address]: A. Right Breast Tissue, Skin Anterior , Long Silk Lateral , Short Silk Medial, Blue Deep B. Right [place] Lymph Node C. Additional Right Superior Breast Tissue, Long silk Lateral, Short Silk Medial, Blue [place] D. Additional Right Inferior Breast Tissue, Long silk Lateral, Short Silk Medial, Blue [place] Drains None Anesthesia Type General Complication(s) none Disposition Recovery Room / PACU I attest to the content of the Intraoperative Record and any orders documented therein. Any exceptions are noted below.
--- NOTE | 2017-11-09 14:06 | Discharge Instructions ---
Discharge Instructions Date of Service Nov 09, 2017. Admission Reason for Admission: Right Breast Cancer W/Hosp Loc & Nm Inj Discharge Discharge Diagnosis / Problem: Rt breast cancer Discharge Goals Goal(s): Decrease discomfort, Improve function, Improve disease control Activity Recommendations Activity Limitations: as noted below Lifting Limitations: no more than 10 pounds Exercise/Sports Limitations: until after follow-up appointment May Resume Sexual Activity: when tolerated Shower/Bathe: tomorrow Driving or Machine Use: one week . Instructions / Follow-Up Instructions / Follow-Up SPECIAL CARE INSTRUCTIONS: * Cover incisions and change daily for comfort/drainage. * Leave steri strips in place * May use ibuprofen for pain as tolerated. * Expect some swelling and bruising. Call your doctor if: * Temperature above 101 degrees * Pain not relieved by pain medicine ordered * There is increased drainage or redness from any incision * You have any unanswered questions or concerns [phone]. FOLLOW UP VISIT: If not already scheduled, please call the office for a follow-up visit. for next week- some suture removal OFFICE PHONE NUMBER: Dr. Alexander Office Current Hospital Diet Patient's current hospital diet: Regular Diet Discharge Diet Recommended Diet: Regular Diet Procedures Procedures Performed: Right Breast Lumpectomy with Needle Localization and [place] Lymph Node Biopsy Pending Studies Studies pending at discharge: no Laboratory Results Lipid Panel Test 10/02/17 10:53 Range/Units Triglycerides Level 66 0-150 mg/dl Cholesterol Level 148 0-200 mg/dl HDL Cholesterol 57 mg/dl Cholesterol/HDL Ratio 2.6 LDL Cholesterol, Calculated 78 mg/dl Medical Emergencies . Who to Call and When: Medical Emergencies: If at any time you feel your situation is an emergency, please call 911 immediately. . Non-Emergent Contact Non-Emergency issues call your: Primary Care Provider, Surgeon . "Provider Documentation" section prepared by Pj Alexander. .
--- NOTE | 2017-11-09 14:13 | OPERATIVE REPORT ---
DATE OF OPERATION: 11/09/2017 NAME OF OPERATION: Needle localization right partial mastectomy with sentinel lymph node biopsy. PREOPERATIVE DIAGNOSIS: Right breast cancer. POSTOPERATIVE DIAGNOSIS: Same. STAFF SURGEON: Dr. Pj Alexander. CONSUMER CREDIT COUNSELOR: Guilherme Mcneil PA-C. ANESTHESIA: General. DESCRIPTION OF PROCEDURE: The patient was brought in the operating room and placed on the operating table in supine position. Her right axilla and breast were prepped and draped in usual fashion. She had a needle in place, which was lateral traversing medially into the subareolar space. Initially, using the Neoprobe incision was made in the right axilla carrying dissection down identifying the sentinel lymph node. It was sent for frozen section. I also sent 2 additional lymph nodes for permanent section. The sentinel lymph node was negative on frozen section. During the frozen section, lumpectomy was performed making an elliptical incision around the needle carrying it medially down to the muscle, removing the tissue. It was marked with the skin anterior, long silk suture lateral, short silk suture medial and methylene blue deep. It was placed into the Faxitron. The suspicious area was within the tissue. Additional superior and inferior tissues were both taken, they were marked with the long silk suture lateral, short silk suture medial and methylene blue new margin. The inferior tissue was taken down to the muscle taking the fascia off the muscle from inferior to superior. At this point, the sites were irrigated with saline solution and then the deep tissue reapproximated using 2-0 plain catgut suture then the skin in the axilla reapproximated using 4-0 nylon suture and the breast reapproximated using subcuticular 4-0 Monocryl and Steri-Strips. Dressings were applied and patient transferred to recovery room in stable condition. Also, note my post production assistant helped with prepping, draping, exposure of the tissue and then closure of the wounds. I attest to the content of the Intraoperative Record and any orders documented therein. Any exception s are noted below.
--- NOTE | 2017-11-09 14:28 | Anesthesiology Progress Note ---
Anesthesia Post Op Note Date & Time Nov 09, 2017 at 14:28 Vital Signs Pain Intensity: 2 Vital Signs Past 12 Hours Date Time Temp Pulse Resp B/P (MAP) Pulse Ox O2 Delivery O2 Flow Rate FiO2 11/09/17 14:20 68 18 120/70 98 Nasal Cannula 3 11/09/17 14:10 63 18 116/71 98 Oxymask 3 11/09/17 14:00 70 18 124/74 98 Oxymask 5 11/09/17 13:53 36.0 80 18 127/74 98 Oxymask 5 11/09/17 09:40 36.2 73 18 141/79 97 Room Air Notes Mental Status: alert / awake / arousable, participated in evaluation Pt Amnestic to Procedure: Yes Nausea / Vomiting: adequately controlled Pain: adequately controlled Airway Patency, RR, SpO2: stable & adequate BP & HR: stable & adequate Hydration State: stable & adequate Anesthetic Complications: no major complications apparent
[2017-11-09] MEDS ORDERED: IV FLUIDS COMPLETED PRN (15:30)
[2017-11-09] MEDS ORDERED: LACTATED RINGER'S 1000ML 1,000 ML IV SCH (15:30)
--- NOTE | 2017-11-09 15:52 | Medical Consult ---
Consultation Date of Consultation: Nov 09, 2017. Attending Physician: Pj Alexander M.D. Reason for Consultation: Post-Operative Management History of Present Illness Ms. Rae is a 67 y/o female with PMHx of HLD and R Invasive Ductal Carcinoma of R Breast and HER2+ (Dx 09/23/17) who is S/P R Lumpectomy and Lymph Node Bx on 11/09. Patient only reporting mild discomfort but no direct pain. Hemodynamically is stable. Not passing flatus but has good bowel sounds. Hasn't had anything to eat yet. She denies any cardiac history including PR or CHF. She has no history of blood clots or bleeding disorders. Past Medical/Surgical History 1. Invasive Ductal Carcinoma of R Breast - Diagnosed 09/23/17 - HER2+ 2. HLD 3. Cervical Dysplasia 4. Diverticulosis 5. S/P Cervical Surgery 6. S/P Tubal Ligation Family History Heart Disease Hypertension Myelodysplastic Syndrome Social History Smoking Status: Current Every Day Smoker Smokeless Tobacco Use: Yes Alcohol Use: none Drug Use: none Allergies Coded Allergies: Rofecoxib (Verified Allergy, Unknown, RASH, 11/09/17) Current Inpatient Medications Current Inpatient Medications Medications (Trade) Dose Ordered Sig/Derek Route Start Time Stop Time Status Last Admin Dose Admin Lactated Ringer's 1,000 ml @ 15 mls/hr Q24H IV 11/09/17 06:00 11/10/17 05:59 11/09/17 10:08 15 MLS/HR Cefazolin Sodium 15 ml @ 2.5 mls/min PREOP IV 11/09/17 06:00 11/09/17 18:00 11/09/17 12:25 2.5 MLS/MIN Atorvastatin Calcium (Lipitor Tab) 20 mg HS PO 11/09/17 21:00 12/09/17 20:59 Lactated Ringer's 1,000 ml @ 50 mls/hr Q20H IV 11/09/17 15:30 12/09/17 15:29 Cefazolin Sodium 1000 mg/Syringe 7.5 ml @ 1.875 mls/ min Q8H IV 11/09/17 20:00 11/19/17 19:59 Acetaminophen/ Hydrocodone Bitart (Bland 5/325 Tab) 1 tab Q4 PRN PO 11/09/17 14:00 11/23/17 13:59 Acetaminophen/ Hydrocodone Bitart (Bland 5/325 Tab) 2 tab Q4 PRN PO 11/09/17 14:00 11/23/17 13:59 Morphine Sulfate (MoRPHine SULFATE INJ) 2 mg Q4H PRN IV 11/09/17 14:00 11/23/17 13:59 UNV Morphine Sulfate (MoRPHine SULFATE INJ) 4 mg Q4H PRN IV 11/09/17 14:00 11/23/17 13:59 UNV Ondansetron HCl (Zofran Inj) 4 mg Q6H PRN IV 11/09/17 14:00 12/09/17 13:59 UNV Promethazine HCl 25 mg/Sodium Chloride 51 ml @ 204 mls/hr Q6H PRN IV 11/09/17 14:00 12/09/17 13:59 UNV Miscellaneous (Iv Fluids Completed) 1 ea PRN PRN N/A 11/09/17 15:30 11/09/18 15:29 UNV Review of Systems Constitutional: No fever, No chills ENT: No nasal symptoms, No sore throat, No trouble swallowing Respiratory: No cough, No shortness of breath Cardiovascular: + chest pain (mild discomfort at surgical site), No orthopnea, No palpitations Abdomen: No pain, No nausea, No vomiting, No diarrhea, No constipation Musculoskeletal: No swelling, No calf pain Genitourinary - Female: No dysuria Neurologic: No numbness/tingling Hematologic / Lymphatic: No abnormal bleeding/bruising Integumentary: No rash Physical Exam Date Time Temp Pulse Resp B/P (MAP) Pulse Ox O2 Delivery O2 Flow Rate FiO2 11/09/17 15:15 64 16 117/75 (89) 98 Nasal Cannula 2.0 11/09/17 14:45 36.3 69 16 123/74 (90) 95 Nasal Cannula 2.0 11/09/17 14:45 Nasal Cannula 2.0 11/09/17 14:30 36.2 68 18 113/70 99 Nasal Cannula 3 11/09/17 14:20 68 18 120/70 98 Nasal Cannula 3 11/09/17 14:10 63 18 116/71 98 Oxymask 3 11/09/17 14:00 70 18 124/74 98 Oxymask 5 11/09/17 13:53 36.0 80 18 127/74 98 Oxymask 5 11/09/17 09:40 36.2 73 18 141/79 97 Room Air General Appearance: WD/WN, no apparent distress Head: normocephalic, atraumatic Eyes: sclerae normal ENT: hearing grossly normal Neck: supple, no JVD, trachea midline Respiratory/Chest: lungs clear, normal breath sounds, no respiratory distress, no accessory muscle use, + pertinent finding (dressing applied to R chest that is C/D/I) Cardiovascular: regular rate, rhythm, no gallop, no murmur Abdomen/GI: normal bowel sounds, non tender, soft Extremities/Musculoskelatal: no pedal edema Neurologic/Psych: alert Skin: normal color, warm/dry Assessment & Plan Ms. Rae is a 67 y/o female with PMHx of HLD and R Invasive Ductal Carcinoma of R Breast and HER2+ (Dx 09/23/17) who is S/P R Lumpectomy and Lymph Node Bx on 11/09. Invasive Ductal Carcinoma R Breast/HER2+ and S/P Lumpectomy and Lymph Node Bx: - Pain management, IVF, DVT prophylaxis, and other surgical management per primary team HLD: - Atorvastatin 20 mg daily Disposition: - Hemodynamically stable; will obtain labs in AM but would suspect no abnormalities given limited blood loss - Monitor oral intake and if tolerating diet and no acute changes she will be D/ Cd in the AM
[2017-11-09] MEDS: CEFAZOLIN IV 1,000 MG in SYRINGE 0 ML IV SCH (20:38)
[2017-11-09] MEDS ORDERED: ATORVASTATIN 20 MG TAB PO SCH (21:00)
[2017-11-10 03:40] VITALS: BP 90/50; PULSE 70; TEMP 36.6; O2SAT 97
[2017-11-10] MEDS: CEFAZOLIN IV 1,000 MG in SYRINGE 0 ML IV SCH (04:04)
--- NOTE | 2017-11-10 06:21 | Discharge Summary ---
Discharge Summary Date of Service Nov 10, 2017. Discharge Summary Admission Date: Nov 09, 2017 at 13:49 Discharge Date: Nov 10, 2017 Primary Diagnosis: Rt breast cancer Procedures: Rt partial mastectomy with sentinel lymph node bx Discharge Instructions Last Recorded Wt (Kilograms): 60.70 Allergies: Coded Allergies: Rofecoxib (Verified Allergy, Unknown, RASH, 11/09/17) Special Care: Call your doctor if: * Temperature above 101 degrees * Pain not relieved by pain medicine ordered * There is increased drainage or redness from any incision * You have any unanswered questions or concerns. Avoid all tobacco products. If you need help to stop smoking, call [place]'s FREE QUITLINE at . This is a free call. Admission Information Admission HPI: Hx of bx proven Rt breast cancer Hospital Course 11/09/17- pt underwent Rt partial mastectomy with sentinel lymph node bx for discharge 11/10/17- pt w/o complication Total time spent on discharge = This includes examination of the patient, discharge planning, medication reconciliation, and communication with other providers.
[2017-11-10 07:12] VITALS: BP 117/59; PULSE 66; TEMP 36.6; O2SAT 96
[2017-11-10 07:42] LABS: HEMATOCRIT 35.2 % (37-47); HEMOGLOBIN 11.6 g/dL (12.0-16.0); MEAN CELL VOLUME 92.9 fL (80-100); MEAN CORPUSCULAR HEMOGLOBIN 30.6 pg (25-34); MEAN PLATELET VOLUME 12.7 fL (7.4-10.4); PLATELET COUNT 151 K/uL (130-400); RED CELL DISTRIBUTION WIDTH CV 14.8 % (11.5-14.5); RED CELL DISTRIBUTION WIDTH SD 50.3 fL (36.4-46.3); WHITE BLOOD COUNT 12.85 K/uL (4.8-10.8)
[2017-11-10 08:22] LABS: CREATININE 0.89 mg/dl (0.60-1.20); POTASSIUM 4.1 mmol/L (3.5-5.1)
[2017-11-10 09:01] VITALS: BP 117/59; PULSE 66; TEMP 36.6; O2SAT 96
--- NOTE | 2017-11-10 13:05 | MAMMOGRAPHY REPORT ---
NEEDLE LOCALIZATION RIGHT BREAST: 11/09/2017 CLINICAL HISTORY: 67-year-old woman with biopsy-proven carcinoma in the right upper outer quadrant. She presents for preoperative needle and wire localization prior to lumpectomy. COMPARISON: Comparison is made to exams dated: 10/22/2017 MRI biopsy, 10/14/2017 mammogram, 10/14/2017 u ltrasound biopsy, 11/09/2017 specimen, 10/14/2017 ultrasound, and 10/05/2017 breast MRI - [facility]. PATIENT CONSENT: The risks of the procedure were explained to the patient and informed consent was ob tained. The patient denied eating or drinking anything this morning that would preclude anesthesia. She also denied allergy to lidocaine and had no problems with it on previous bilateral breast biopsi es. PROCEDURE DESCRIPTION: Prior bilateral breast biopsies, mammograms and particularly a right breast st ereotactic biopsy images were reviewed. The dumbbell-shaped biopsy marker clip in the upper outer po sterior right breast, near a dominant round coarse calcification is the intended target for preoperat courtney localization. A timeout was performed in the right breast was agreed as the site for preoperativ e localization. With the patient in the seated position, the right breast was placed in lateralmedial compression. 1 % buffered Lidocaine without epinephrine was administered as local anesthesia. A 5cm Kaye II needl e and wire combination was inserted into the breast. Optimal positioning was confirmed and the wire w as locked in place, leaving both the needle and wire within the breast, as per surgeon's preference. The entire procedure including approach and needle length were discussed with the operating surgeon prior to surgery with particular attention to additional punctate microcalcifications located approxi mately 2 cm anterior to the dumbbell-shaped clip. The patient tolerated the procedure well and there was no immediate complication. She was sent to the hospital operating room in satisfactory conditio n. The specimen radiograph demonstrates the large round coarse calcification, partially shattered. The re is also the localizing needle and wire combination adjacent to the dumbbell-shaped biopsy marker c lip, denoting the site of biopsy-proven carcinoma. A second T-shaped clip is also seen with surround ing hematoma from prior benign MRI guided biopsy, and there are faint punctate microcalcifications lo cated between the 2 biopsy marker clips, which could represent additional DCIS. (These are located a t approximately G-8 on the grid.) IMPRESSION: NEEDLE LOCALIZATION Status post successful preoperative needle and wire localization in the upper outer quadrant of the r ight breast. The imaged specimen includes the intended abnormalities. Final pathology is pending. Robyn Chen M.D. ay/:11/09/2017 13:49:15 Traffic Police Officer: Tiki ORTIZ)([place]), [facility]
== END 2017-11-10 09:12 | disposition home or self-care (01) ==
LOC: C.ACU 07:46 → C.MSW 13:49 → ENRESERV 14:24
PROVIDERS: ADMIT Surgery; ATTEND Surgery
DX: C50.911 Malignant neoplasm of unspecified site of right female breast (principal); E78.5 Hyperlipidemia, unspecified; K57.30 Diverticulosis of large intestine without perforation or abscess without bleeding; M19.90 Unspecified osteoarthritis, unspecified site; F17.200 Nicotine dependence, unspecified, uncomplicated; Z88.8 Allergy status to other drugs, medicaments and biological substances; Z82.49 Family history of ischemic heart disease and other diseases of the circulatory system

== ENCOUNTER → 2017-11-30 | Day surgery (SDC) | payer BC ==
[2017-11-23 08:59] VITALS: BMI 27.0
[~2017-11-30] VITALS: Ht 149.9 cm; Wt 61.8 kg
[~2017-11-30] MED LIST changes: +ATROPINE SULFATE 0.1 MG/ML 5ML SYR IV PRN; +CEFAZOLIN SOD 1 GM VIAL ONE; +EpHEDrine SULFATE INJ 50 MG/ML AMP IV PRN; +EpHEDrine SULFATE INJ 50 MG/ML AMP ONE; +FENTANYL CITRATE INJ 50 MCG/1 ML 2 ML VIAL IV PRN; +FENTANYL CITRATE INJ 50 MCG/1 ML 2 ML VIAL ONE; +HEPARIN SOD (PORCINE) 1000 UNIT/ML 10 ML VIAL ONE; +HYDR-5688 PO; +HYDROCODONE/ACETAMIN 5/325MG TAB PO PRN; +LIDOCAINE HCL 1% 20 ML VIAL ONE; +LIDOCAINE HCL 2% 2 ML VIAL (20MG/ML) ONE; +MIDAZOLAM HCL 1 MG/ML 2ML VIAL ONE; +ONDANSETRON INJ 2 MG/ML 2 ML VIAL IV PRN; +PROPOFOL IV EMULSION 10 MG/ML 20 ML VIAL IV ONE; +THROMBIN FOR SOLN 20000 UNIT KIT ONE
[2017-11-30 05:45] VITALS: BP 127/82; PULSE 82; TEMP 36.6; O2SAT 96; Ht 149.9 cm; Wt 61.8 kg
--- NOTE | 2017-11-30 06:47 | History and Physical ---
History & Physical Date Nov 30, 2017. Chief Complaint breast cancer History of Present Illness The patient is a 67 year old female with complaints of Past Medical/Surgical History Medical Problems: (1) Breast cancer Additional History Hepatic Disease: No Kidney Disease: No Allergies Coded Allergies: Rofecoxib (Verified Allergy, Unknown, RASH, 11/30/17) Home Medications Scheduled Atorvastatin (Lipitor), 20 MG PO HS Calcium Carbonate-Cholecalcife (Caltrate 600+D), 1 TAB PO QPM Cholecalciferol (D 1000), 1 TAB PO QPM Scheduled PRN Naproxen (Aleve), 220-440 MG PO QD PRN for Pain Physical Examination Skin: warm/dry Eyes: sclerae normal Head: atraumatic Neck: supple Respiratory/Chest: no respiratory distress Cardiovascular: regular rate, rhythm Abdomen / GI: non tender Neurologic/Psych: alert Diagnosis breast cancer- for access port Plan of Treatment for Access port
--- NOTE | 2017-11-30 07:47 | Discharge Instructions ---
Discharge Instructions Date of Service Nov 30, 2017. Visit Reason for Visit: Right Breast Cancer Discharge Discharge Diagnosis / Problem: A-port Discharge Goals Goal(s): Decrease discomfort Activity Recommendations Activity Limitations: as noted below Shower/Bathe: keep incision dry (2 days) Driving or Machine Use: resume 1 day after discharge (if not taking [place]) Anesthesia . Post Anesthesia Instructions: If you have had General Anesthesia or IV Sedation: * Do not drive today. * Resume driving when surgeon permits. * Do not make important decisions or sign legal documents today. * Call surgeon for: 1. Temperature elevations greater than 101 degrees F. 2. Uncontrollable pain. 3. Excessive bleeding. 4. Persistent nausea and vomiting. 5. Medication intolerance (nausea, vomiting or rash). * For nausea and vomiting use only clear liquids such as: tea, soda, bouillon until nausea subsides, then gradually increase diet as tolerated. * If you have any concerns or questions, call your surgeon's office. If physician is unavailable and it is an emergency, call 911 or go to the nearest emergency room. . Instructions / Follow-Up Instructions / Follow-Up Dr. Lanza office in 2 weeks for suture removal, call [phone] if you do not already have an appt or have any questions Diet Recommendations Recommended Home Diet: no limitations Procedures Procedures Performed: Insertion of Aport Pending Studies Studies pending at discharge: no Medical Emergencies . Who to Call and When: Medical Emergencies: If at any time you feel your situation is an emergency, please call 911 immediately. . Non-Emergent Contact Non-Emergency issues call your: Surgeon Call Non-Emergent contact if: you have a fever, temperature is above 101.5, your pain is not controlled, wound has increased redness, you have any medication questions . . "Provider Documentation" section prepared by Guilherme Mcneil. .
--- NOTE | 2017-11-30 07:58 | [facility] Operative Report ---
Operative Report Operative Date Nov 30, 2017. Pre-Operative Diagnosis Breast Cancer Post-Operative Diagnosis Breast Cancer Procedure(s) Performed Insertion of Aport Surgeon Dr Alexander Chief Technology Officer Surgeon(s) None Estimated Blood Loss 5CC Findings placed via Lt subclavian vein Specimens None per surgeon Drains None Anesthesia Type MAC Complication(s) none Disposition Recovery Room / PACU I attest to the content of the Intraoperative Record and any orders documented therein. Any exceptions are noted below.
--- NOTE | 2017-11-30 08:20 | DIAGNOSTIC IMAGING REPORT ---
CHEST ONE VIEW PORTABLE HISTORY: Port placement. COMPARISON: Chest 10/28/2017. FINDINGS: Interval placement left subclavian Port-A-Cath. The tip terminates at the expected location of the SVC. No pneumothorax. No pleural effusions. The lungs are clear. The heart is normal in size. IMPRESSION: Left subclavian Port-A-Cath with the tip terminating at the SVC. No pneumothorax. Electronically signed by: Leland Cortes M.D. 11/30/2017 8:18 AM Dictated Date/Time: 11/30/2017 8:16 AM
--- NOTE | 2017-11-30 08:22 | OPERATIVE REPORT ---
DATE OF OPERATION: 11/30/2017 NAME OF OPERATION: Access port placement. PREOPERATIVE DIAGNOSIS: Breast cancer. POSTOPERATIVE DIAGNOSIS: Same. STAFF SURGEON: Dr. Alexander. ANESTHESIA: 1% plain lidocaine with sedation. DESCRIPTION OF PROCEDURE: The patient was brought in the operating room and placed on the operating table in supine position. Her chest was prepped and draped in usual fashion. Skin and subcutaneous tissue over the left deltopectoral groove were anesthetized. Incision made carrying dissection down identifying a very small cephalic vein. I was unable to pass the catheter through this vein. It was ligated. The patient was placed in Trendelenburg position. Using a puncture technique, the left subclavian vein was localized. A wire passed under fluoroscopy, the needle removed and then a dilator and introducer passed over the wire. The dilator and wire removed. The catheter passed through the introducer. The introducer removed. Catheter was positioned appropriately under fluoroscopy and then the port was attached to the catheter. A pocket was fashioned in the chest wall. The port was placed into the pocket and secured to the chest wall using 3-0 Prolene suture. The port was aspirated and flushed with heparinized solution. The site was irrigated with antibiotic solution. Then, the subcutaneous tissue reapproximated using 2-0 chromic suture and the skin reapproximated using 4-0 nylon suture. Dressing applied. The patient transferred to recovery room in stable condition. I attest to the content of the Intraoperative Record and any orders documented therein. Any exception s are noted below.
--- NOTE | 2017-11-30 08:35 | Anesthesiology Progress Note ---
Anesthesia Post Op Note Date & Time Nov 30, 2017 at 08:35 Vital Signs Pain Intensity: 0 Vital Signs Past 12 Hours Date Time Temp Pulse Resp B/P (MAP) Pulse Ox O2 Delivery O2 Flow Rate FiO2 11/30/17 08:27 83 17 93 11/30/17 08:27 81 17 11/30/17 08:25 118/77 11/30/17 08:22 80 19 94 11/30/17 08:22 77 19 11/30/17 08:20 105/70 11/30/17 08:19 36.4 79 16 105/70 (74) 94 Room Air 11/30/17 08:17 79 11 11/30/17 08:17 80 11 95 11/30/17 08:16 106/65 11/30/17 08:12 85 27 93 11/30/17 08:12 82 27 11/30/17 08:11 83 31 11/30/17 08:11 87 31 116/75 92 11/30/17 08:06 72 25 11/30/17 08:06 73 25 118/66 96 11/30/17 08:01 74 26 11/30/17 08:01 36.1 73 16 121/74 (82) 99 Oxymask 10 11/30/17 08:01 76 26 121/74 99 11/30/17 05:45 36.6 82 18 127/82 (97) 96 Room Air Notes Mental Status: alert / awake / arousable, participated in evaluation Pt Amnestic to Procedure: Yes Nausea / Vomiting: adequately controlled Pain: adequately controlled Airway Patency, RR, SpO2: stable & adequate BP & HR: stable & adequate Hydration State: stable & adequate Anesthetic Complications: no major complications apparent
[2017-11-30 08:40] VITALS: BP 109/70; PULSE 73; TEMP 36.4; O2SAT 93
[2017-11-30 09:06] VITALS: BP 109/72; PULSE 79; TEMP 36.3; O2SAT 94
[2017-11-30 09:14] VITALS: BP 109/72; PULSE 79; TEMP 36.3; O2SAT 94
== END | disposition home or self-care (01) ==
LOC: C.ACU 05:20
PROVIDERS: ATTEND Surgery
DX: C50.911 Malignant neoplasm of unspecified site of right female breast (principal); Z88.8 Allergy status to other drugs, medicaments and biological substances; Z79.899 Other long term (current) drug therapy; F17.200 Nicotine dependence, unspecified, uncomplicated; E78.5 Hyperlipidemia, unspecified; M19.049 Primary osteoarthritis, unspecified hand; M06.4 Inflammatory polyarthropathy; Z98.51 Tubal ligation status; Z82.49 Family history of ischemic heart disease and other diseases of the circulatory system; Z82.62 Family history of osteoporosis; Z82.61 Family history of arthritis

== ENCOUNTER → 2018-03-05 | Outpatient (CLI) | payer BC ==
[~2018-03-05] MED LIST changes: -ATROPINE SULFATE 0.1 MG/ML 5ML SYR IV PRN; -CEFAZOLIN 2000MG IV PUSH 15 ML IV SCH; -CEFAZOLIN SOD 1 GM VIAL ONE; -EpHEDrine SULFATE INJ 50 MG/ML AMP IV PRN; -EpHEDrine SULFATE INJ 50 MG/ML AMP ONE; -FENTANYL CITRATE INJ 50 MCG/1 ML 2 ML VIAL IV PRN; -FENTANYL CITRATE INJ 50 MCG/1 ML 2 ML VIAL ONE; -HEPARIN SOD (PORCINE) 1000 UNIT/ML 10 ML VIAL ONE; -HYDROCODONE/ACETAMIN 5/325MG TAB PO PRN; -LACTATED RINGER'S 1000ML 1,000 ML IV SCH; -LIDOCAINE HCL 1% 20 ML VIAL ONE; -LIDOCAINE HCL 2% 2 ML VIAL (20MG/ML) ONE; -MIDAZOLAM HCL 1 MG/ML 2ML VIAL ONE; -ONDANSETRON INJ 2 MG/ML 2 ML VIAL IV PRN; -PROPOFOL IV EMULSION 10 MG/ML 20 ML VIAL IV ONE; -THROMBIN FOR SOLN 20000 UNIT KIT ONE
[2018-03-05 09:50] LABS: HEMATOCRIT 27.1 % (37-47); HEMOGLOBIN 9.1 g/dL (12.0-16.0); MEAN CELL VOLUME 100.4 fL (80-100); MEAN CORPUSCULAR HEMOGLOBIN 33.7 pg (25-34); MEAN CORPUSCULAR HGB CONC 33.6 g/dl (32-36); RED CELL DISTRIBUTION WIDTH CV 20.7 % (11.5-14.5); RED CELL DISTRIBUTION WIDTH SD 73.2 fL (36.4-46.3); WHITE BLOOD COUNT 6.83 K/uL (4.8-10.8)
[2018-03-05 10:14] LABS: ALBUMIN 3.4 gm/dl (3.4-5.0); ALT/SGPT 16 U/L (12-78); AST/SGOT 18 U/L (15-37); BLOOD UREA NITROGEN 13 mg/dl (7-18); CALCIUM 8.8 mg/dl (8.5-10.1); CARBON DIOXIDE 25 mmol/L (21-32); CREATININE 0.99 mg/dl (0.60-1.20); GLUCOSE 95 mg/dl (70-99); POTASSIUM 3.8 mmol/L (3.5-5.1); SODIUM 141 mmol/L (136-145)
[2018-03-05 10:16] LABS: MEAN PLATELET VOLUME 10.5 fL (7.4-10.4); PLATELET COUNT 94 K/uL (130-400)
[2018-03-05 10:17] LABS: ALKALINE PHOSPHATASE 67 U/L (45-117); BASO % 0.1 %; BASO ABS # 0.01 K/uL (0-0.2); EOS % 0.1 %; EOS ABS # 0.01 K/uL (0-0.5); IG# 0.02 K/uL (0.00-0.02); LYMPH % 21.4 %; LYMPH ABS # 1.46 K/uL (1.2-3.4); MONO % 7.3 %; NEUT % 70.8 %; NEUT ABS # 4.83 K/uL (1.4-6.5); TOTAL PROTEIN 6.2 gm/dl (6.4-8.2)
== END | disposition home or self-care (01) ==
LOC: C.LABSPEC 09:00
PROVIDERS: ATTEND Internal Medicine Hematology & Oncology
DX: C50.411 Malignant neoplasm of upper-outer quadrant of right female breast (principal)

== ENCOUNTER → 2018-03-26 | Outpatient (CLI) | payer BC ==
[2018-03-26 09:42] LABS: BASO % 0.3 %; BASO ABS # 0.02 K/uL (0-0.2); HEMATOCRIT 26.6 % (37-47); HEMOGLOBIN 8.4 g/dL (12.0-16.0); IG# 0.02 K/uL (0.00-0.02); LYMPH % 20.9 %; LYMPH ABS # 1.43 K/uL (1.2-3.4); MEAN CELL VOLUME 104.3 fL (80-100); MEAN CORPUSCULAR HEMOGLOBIN 32.9 pg (25-34); MEAN CORPUSCULAR HGB CONC 31.6 g/dl (32-36); MEAN PLATELET VOLUME 10.8 fL (7.4-10.4); MONO % 6.4 %; MONO ABS # 0.44 K/uL (0.11-0.59); NEUT % 72.1 %; NEUT ABS # 4.94 K/uL (1.4-6.5); PLATELET COUNT 123 K/uL (130-400); RED CELL DISTRIBUTION WIDTH CV 19.7 % (11.5-14.5); RED CELL DISTRIBUTION WIDTH SD 73.2 fL (36.4-46.3); WHITE BLOOD COUNT 6.85 K/uL (4.8-10.8)
[2018-03-26 09:57] LABS: ALBUMIN 3.2 gm/dl (3.4-5.0); ALT/SGPT 14 U/L (12-78); AST/SGOT 15 U/L (15-37); BLOOD UREA NITROGEN 12 mg/dl (7-18); CALCIUM 8.4 mg/dl (8.5-10.1); CARBON DIOXIDE 25 mmol/L (21-32); GLUCOSE 96 mg/dl (70-99); POTASSIUM 3.8 mmol/L (3.5-5.1); SODIUM 138 mmol/L (136-145)
[2018-03-26 10:15] LABS: ALKALINE PHOSPHATASE 64 U/L (45-117); TOTAL PROTEIN 6.1 gm/dl (6.4-8.2)
== END | disposition home or self-care (01) ==
LOC: C.LABSPEC 09:03
PROVIDERS: ATTEND Internal Medicine Hematology & Oncology
DX: C50.411 Malignant neoplasm of upper-outer quadrant of right female breast (principal)